=== PATIENT | male | born 1940 | race Caucasian/White ===

== ENCOUNTER 2022-05-16 12:50 | Observation (INO) | payer MEDICARE, OTHER ==
[2022-05-16] MEDS ORDERED: TETANUS, DIPHTHERIA TOX,ADULT (TDVAX) 0.5 ML VIAL IM ONE (17:04)
[2022-05-16] MEDS ORDERED: Ondansetron PF 4 MG/2 ML Vial IVP PRN (17:04)
[2022-05-16] MEDS ORDERED: hydrALAZINE 20 MG/ML VIAL SLOW IVP PRN (17:16)
[2022-05-16] MEDS: Acetaminophen 500 MG TAB PO SCH ×2 (18:09→23:49)
[2022-05-16 19:40] VITALS: BMI 29.8
[2022-05-16] MEDS: Famotidine/PF 20 mg/2ml Vial SLOW IVP SCH (20:48)
[2022-05-17] MEDS: Acetaminophen 500 MG TAB PO SCH (05:11)
[2022-05-17 05:13] VITALS: TEMP 97.8
[2022-05-17 08:17] VITALS: BP 134/91
[2022-05-17] MEDS: Famotidine/PF 20 mg/2ml Vial SLOW IVP SCH (10:07)
== END 2022-05-17 09:50 | disposition home health service (06) ==
LOC: SURG A 12:50
PROVIDERS: ADMIT Surgery; ATTEND Surgery
DX: S06.5XAA Traumatic subdural hemorrhage with loss of consciousness status unknown, initial encounter (principal); S01.01XA Laceration without foreign body of scalp, initial encounter; E78.5 Hyperlipidemia, unspecified; N40.0 Benign prostatic hyperplasia without lower urinary tract symptoms; S42.009A Fracture of unspecified part of unspecified clavicle, initial encounter for closed fracture; Z23 Encounter for immunization; Z85.038 Personal history of other malignant neoplasm of large intestine; Z79.82 Long term (current) use of aspirin; Z79.899 Other long term (current) drug therapy; Z95.2 Presence of prosthetic heart valve; W18.30XA Fall on same level, unspecified, initial encounter; W19.XXXA Unspecified fall, initial encounter
CPT/HCPCS: 12002; 70450 ×2; 80053; 85025; 85610; 85730; 90471; 90715; 96374; 99285; G0378 ×2; S0028